=== PATIENT | female | born 1960 | race American Indian/Alaskan Native ===

== ENCOUNTER 2016-12-03 18:53 | Emergency (ER) | payer MEDICAID ==
[2016-12-03 18:56] VITALS: BMI 29.0
[2016-12-03 19:15] VITALS: RESP 18
[2016-12-03 19:34] VITALS: BP 138/82; PULSE 69; TEMP 98.2; O2SAT 99
[2016-12-03] MEDS ORDERED: Oxycodone/Acetaminophen 5/325 mg Tab PO STA (20:16)
--- NOTE | 2016-12-03 20:17 | ED PDOC ---
Arrival/HPI - General Chief Complaint: Back Pain Time Seen by Provider: 12/03/16 19:35 Historian: Patient - History of Present Illness Narrative History of Present Illness (Text): 12/03/16 19:35 A 56 year old female, whose past medical history includes lumbar radiculopathy and knee OA, presents to the emergency department complaining of left hip and back pain for the past 4 weeks. Patient is currently requesting Toradol for the pain and a prescription for Percocet. She denies any fever, chills, chest pain, shortness of breath or any other complaints at this time. PMD: Dr. Jonas Time/Duration: > week (4 weeks) Symptom Onset: Sudden Symptom Course: Unchanged Quality: Other Activities at Onset: Rest Context: Home Past Medical History - Provider Review Nursing Documentation Reviewed: Yes - Infectious Disease Hx of Infectious Diseases: None - Tetanus Immunization Tetanus Immunization: Unknown - Reproductive Menopause: Yes - Cardiac Hx Cardiac Disorders: No - Pulmonary Hx Respiratory Disorders: Yes Hx Asthma: Yes Hx Bronchitis: Yes - Neurological Hx Neurological Disorder: No - HEENT Hx HEENT Disorder: No - Renal Hx Renal Disorder: No - Endocrine/Metabolic Hx Endocrine Disorders: No - Hematological/Oncological Hx Blood Disorders: No - Integumentary Hx Dermatological Disorder: No - Musculoskeletal/Rheumatological Hx Arthritis: Yes Hx Back Pain: Yes Hx Degenerative Joint Disease: Yes Other/Comment: pinched nerve; chronic right leg pain, PVD - Gastrointestinal Hx Gastrointestinal Disorders: No - Genitourinary/Gynecological Hx Genitourinary Disorders: No - Psychiatric Hx Anxiety: Yes Hx Depression: Yes Hx Emotional Abuse: No Hx Physical Abuse: No Hx Substance Use: No - Surgical History Hx Orthopedic Surgery: Yes (rt foot) Other/Comment: L breast biopsy - Anesthesia Hx Anesthesia Reactions: No - Suicidal Assessment Feels Threatened In Home Enviroment: No Family/Social History - Physician Review Nursing Documentation Reviewed: Yes Family/Social History: Unknown Family HX Smoking Status: Current Some Days Smoker Hx Alcohol Use: Yes Hx Substance Use: No Hx Substance Use Treatment: No Allergies/Home Meds Allergies/Adverse Reactions: Allergies Sulfa (Sulfonamide Antibiotics) Allergy (Verified 12/03/16 19:15) ANAPHYLAXIS sulfur Allergy (Uncoded 11/07/15 16:42) ANAPHYLAXIS Home Medications: Home Meds Medication Instructions Recorded Confirmed Omeprazole [PrilOSEC] 40 mg PO DAILY 01/17/15 12/03/16 Methocarbamol [Robaxin] 750 mg PO TID 12/03/16 12/03/16 buPROPion XL [Wellbutrin] 150 mg PO DAILY 12/03/16 12/03/16 Review of Systems - Physician Review All systems were reviewed & negative as marked: Yes - Review of Systems Constitutional: absent: Fevers Respiratory: absent: SOB Cardiovascular: absent: Chest Pain Musculoskeletal: Back Pain, Other (right hip pain) Physical Exam Vital Signs Reviewed: Yes Vital Signs Temp Pulse Resp BP Pulse Ox 12/03/16 19:33 98.2 F 69 18 138/82 99 12/03/16 19:12 99 F 72 18 163/76 H 98 Temperature: Afebrile Blood Pressure: Hypertensive Pulse: Regular Respiratory Rate: Normal Appearance: Positive for: Well-Appearing, Non-Toxic, Comfortable Pain Distress: None Mental Status: Positive for: Alert and Oriented X 3 - Systems Exam Head: Present: Atraumatic, Normocephalic Pupils: Present: PERRL Extroacular Muscles: Present: EOMI Conjunctiva: Present: Normal Mouth: Present: Moist Mucous Membranes Neck: Present: Normal Range of Motion Respiratory/Chest: Present: Clear to Auscultation, Good Air Exchange. No: Respiratory Distress, Accessory Muscle Use Cardiovascular: Present: Regular Rate and Rhythm, Normal S1, S2. No: Murmurs Abdomen: Present: Normal Bowel Sounds. No: Tenderness, Distention, Peritoneal Signs Back: Present: Normal Inspection Upper Extremity: Present: Normal Inspection. No: Cyanosis, Edema Lower Extremity: Present: Normal Inspection. No: Edema Neurological: Present: GCS=15, CN II-XII Intact, Speech Normal Skin: Present: Warm, Dry, Normal Color. No: Rashes Psychiatric: Present: Alert, Oriented x 3, Normal Insight, Normal Concentration Medical Decision Making ED Course and Treatment: 12/03/16 19:35 Impression: A 56 year old female with chronic left hip and back pain. Differential Diagnosis include but are not limited to: chronic pain Plan: -- Toradol -- Reassess and disposition Prior Visits: Notes and results from previous visits were reviewed. The patient last presented to the emergency department on 11/07/15 for evaluation of right knee pain. Progress Notes: 12/03/16 20:16 On reevaluation the patient still complains of pain. Will give a Percocet. 12/03/16 20:22 On re-evaluation, the patient is in no acute distress.I have discussed the results and plan with the patient, who expresses understanding. Patient in agreement with plan to discharged home with prescription of Lidoderm. Patient is stable for discharge. I have explained to the patient, her pain is chronic and she will need to follow up with pain management for prescription for Percocet. Patient was instructed to follow up with pain management or return if symptoms worsen or new concerning symptoms arise. - Medication Orders Current Medication Orders: Discontinued Medications Ketorolac Tromethamine (Toradol) 60 mg IM ONCE ONE Stop: 12/03/16 20:01 Last Admin: 12/03/16 20:06 Dose: 60 mg Oxycodone/Acetaminophen (Percocet 5/325 Mg Tab) 1 tab PO STAT STA Stop: 12/03/16 20:17 Last Admin: 12/03/16 20:23 Dose: 1 tab - Scribe Statement The provider has reviewed the documentation as recorded by the Veena Aviles Provider Scribe Attestation: All medical record entries made by the Scribe were at my direction and personally dictated by me. I have reviewed the chart and agree that the record accurately reflects my personal performance of the history, physical exam, medical decision making, and the department course for this patient. I have also personally directed, reviewed, and agree with the discharge instructions and disposition. Disposition/Present on Arrival - Present on Arrival Any Indicators Present on Arrival: No History of DVT/PE: No History of Uncontrolled Diabetes: No Urinary Catheter: No History of Decub. Ulcer: No History Surgical Site Infection Following: None - Disposition Have Diagnosis and Disposition been Completed?: Yes Diagnosis: Chronic pain Disposition: HOME/ ROUTINE Disposition Time: 20:22 Condition: GOOD Discharge Instructions (ExitCare): Chronic Pain (ED) Prescriptions: Lidocaine 5% [Lidoderm] 1 appl TP DAILY #4 Referrals: Malvin Jonas MD [Primary Care Provider] - Follow up with primary
== END 2016-12-03 20:26 | disposition home or self-care (01) ==
LOC: ED 18:53
DX: G89.29 Other chronic pain (principal); M54.16 Radiculopathy, lumbar region; M17.9 Osteoarthritis of knee, unspecified
CPT/HCPCS: 96372; 99283; J1885

== ENCOUNTER 2017-02-06 22:18 | Emergency (ER) | payer MEDICAID ==
--- NOTE | 2017-02-06 23:16 | ED PDOC ---
Arrival/HPI - General Time Seen by Provider: 02/06/17 22:51 Historian: Patient - History of Present Illness Narrative History of Present Illness (Text): 02/06/17 23:18 56-year-old female presents to the ER complaining of several day history of right sided facial pain related to her sinuses. Patient states that she has had sinus infection in the past and her symptoms feel similar to her prior episodes. Reports of nasal congestion as well. Denies any fever, chills, headache, cough, sore throat, rash. Patient has no other complaints. States that she took Advil PM last night with improvement of pain. Past Medical History - Provider Review Nursing Documentation Reviewed: Yes - Infectious Disease Hx of Infectious Diseases: None - Tetanus Immunization Tetanus Immunization: Unknown - Cardiac Hx Cardiac Disorders: No - Pulmonary Hx Respiratory Disorders: Yes Hx Asthma: Yes Hx Bronchitis: Yes - Neurological Hx Neurological Disorder: No - HEENT Hx HEENT Disorder: No - Renal Hx Renal Disorder: No - Endocrine/Metabolic Hx Endocrine Disorders: No - Hematological/Oncological Hx Blood Disorders: No - Integumentary Hx Dermatological Disorder: No - Musculoskeletal/Rheumatological Hx Arthritis: Yes Hx Back Pain: Yes Hx Degenerative Joint Disease: Yes Other/Comment: pinched nerve; chronic right leg pain, PVD - Gastrointestinal Hx Gastrointestinal Disorders: No - Genitourinary/Gynecological Hx Genitourinary Disorders: No - Psychiatric Hx Anxiety: Yes Hx Depression: Yes Hx Emotional Abuse: No Hx Physical Abuse: No Hx Substance Use: No - Surgical History Hx Orthopedic Surgery: Yes (rt foot) Other/Comment: L breast biopsy - Anesthesia Hx Anesthesia Reactions: No - Suicidal Assessment Feels Threatened In Home Enviroment: No Family/Social History - Physician Review Nursing Documentation Reviewed: Yes Family/Social History: No Known Family HX Smoking Status: Current Some Days Smoker Hx Alcohol Use: Yes Hx Substance Use: No Hx Substance Use Treatment: No Allergies/Home Meds Allergies/Adverse Reactions: Allergies Sulfa (Sulfonamide Antibiotics) Allergy (Verified 12/03/16 19:15) ANAPHYLAXIS sulfur Allergy (Uncoded 11/07/15 16:42) ANAPHYLAXIS Home Medications: Home Meds Medication Instructions Recorded Confirmed Omeprazole [PrilOSEC] 40 mg PO DAILY 01/17/15 12/03/16 Methocarbamol [Robaxin] 750 mg PO TID 12/03/16 12/03/16 buPROPion XL [Wellbutrin] 150 mg PO DAILY 12/03/16 12/03/16 Review of Systems - Review of Systems Constitutional: Normal. absent: Fatigue, Weight Change, Fevers, Night Sweats ENT: Normal, Sinus Congestion. absent: Hearing Changes, Rhinorrhea, Epistaxis Respiratory: Normal. absent: SOB, Cough, Sputum Cardiovascular: Normal. absent: Chest Pain, Palpitations, Edema Musculoskeletal: Normal. absent: Arthralgias, Back Pain, Neck Pain Skin: Normal. absent: Rash, Pruritis, Skin Lesions Physical Exam Vital Signs Reviewed: Yes Vital Signs Temp Pulse Resp BP Pulse Ox 02/06/17 22:20 98.3 F 73 16 164/84 H 98 Appearance: Positive for: Well-Appearing, Non-Toxic, Comfortable Pain Distress: Mild Mental Status: Positive for: Alert and Oriented X 3 - Systems Exam Head: Present: Atraumatic, Normocephalic Pupils: Present: PERRL Extroacular Muscles: Present: EOMI Conjunctiva: Present: Normal Ears: Present: Normal, NORMAL TM, Normal Canal. No: Erythema, TM Bulging Mouth: Present: Moist Mucous Membranes Pharnyx: Present: Normal. No: ERYTHEMA, EXUDATE Nose (Internal): Present: Normal Inspection, Other (+tenderness to the R maxillary sinus). No: Rhinorrhea, Purulent Mucous Neck: Present: Normal Range of Motion. No: MIDLINE TENDERNESS Respiratory/Chest: Present: Clear to Auscultation, Good Air Exchange. No: Respiratory Distress, Accessory Muscle Use, Wheezes, Rales, Rhonchi Cardiovascular: Present: Regular Rate and Rhythm, Normal S1, S2. No: Murmurs Upper Extremity: Present: Normal Inspection, Normal ROM, NORMAL PULSES, Neurovascularly Intact, Capillary Refill < 2s. No: Edema Lower Extremity: Present: Normal Inspection. No: Edema, Tenderness Neurological: Present: GCS=15, CN II-XII Intact Skin: Present: Warm, Dry, Normal Color. No: Rashes Psychiatric: Present: Alert, Oriented x 3 Medical Decision Making ED Course and Treatment: 02/06/17 23:14 56-year-old female presents to the ER complaining of several day history of right sided facial pain related to her sinuses. Based on history and exam, to consider sinusitis, rhinitis, URI. Patient medicated with Augmentin by mouth, Motrin by mouth, and Benadryl by mouth. Prescriptions for Augmentin, Motrin, and Flonase was prescribed to the patient. Advised to finish full course of antibiotics and follow-up with PMD or ENT referral in 2 days for reevaluation. Patient states she fully agrees with and understands discharge instructions. States that she agrees with the plan and disposition. Verbalized and repeated discharge instructions and plan. I have given the patient opportunity to ask any additional questions. Follow up with primary care physician and ENT referral in 1-2 days without fail. Advised to take medication as prescribed. Return to the emergency room at any time for any new or worsening symptoms. - PA / ELEVATOR BUILDER / Resident Statement MD/DO has reviewed & agrees with the documentation as recorded. Disposition/Present on Arrival - Present on Arrival Any Indicators Present on Arrival: No History of DVT/PE: No History of Uncontrolled Diabetes: No Urinary Catheter: No History of Decub. Ulcer: No History Surgical Site Infection Following: None - Disposition Have Diagnosis and Disposition been Completed?: Yes Diagnosis: Sinusitis Disposition: HOME/ ROUTINE Disposition Time: 23:13 Patient Plan: Discharge Patient Problems: Current Active Problems Problem Status Onset Sinusitis Acute Condition: GOOD Discharge Instructions (ExitCare): Sinusitis (ED) Print Language: GREENLANDIC Additional Instructions: Thank you for letting us take care of you today. You were treated for sinusitis. The emergency medical care you received today was directed at your acute symptoms. If you were prescribed any medication, please fill it and take as directed. It may take several days for your symptoms to resolve. Return to the Emergency Department if your symptoms worsen, do not improve, or if you have any other problems. Please contact your doctor in 2 days for re-evaluation and follow up / or call one of the physicians/clinics you have been referred to that are listed on the Patient Visit Information form that is included in your discharge packet. Bring any paperwork you were given at discharge with you along with any medications you are taking to your follow up visit. Our treatment cannot replace ongoing medical care by a primary care provider (PCP) outside of the emergency department. Thank you for allowing the [facility] [employer] team to be part of your care today. Prescriptions: Amoxicillin/Potassium Clav [Augmentin 500-125 Tablet] 1 each PO TID #30 tablet Fluticasone Propionate [Flonase] 2 spr IN DAILY #1 bottle Ibuprofen [Motrin Tab] 800 mg PO TID #20 tab Referrals: Arnaldo Silver DO [[facility]] - Follow up with primary Forms: WORK NOTE
[2017-02-06 23:27] VITALS: BP 164/84; PULSE 73; RESP 16; TEMP 98.3; O2SAT 98; BMI 30.7
[2017-02-06] MEDS ORDERED: Amoxicillin-Clav 500-125 mg Tab PO STA (23:55)
== END 2017-02-07 00:06 | disposition home or self-care (01) ==
LOC: ED 22:18
DX: J32.9 Chronic sinusitis, unspecified (principal); Z72.0 Tobacco use

== ENCOUNTER 2017-08-01 16:27 | Emergency (ER) | payer MEDICAID ==
[2017-08-01 16:41] VITALS: BMI 29.9
[2017-08-01 16:45] VITALS: BP 174/98; PULSE 68; RESP 18; TEMP 98.2; O2SAT 98
--- NOTE | 2017-08-01 17:57 | ED PDOC ---
Arrival/HPI - General Chief Complaint: Back Pain Time Seen by Provider: 08/01/17 16:31 Historian: Patient - History of Present Illness Narrative History of Present Illness (Text): 08/01/17 17:56 57yo female with PMHx of chronic back pain and OA biba for complaint of severe lower back pain that radiates to her leg. she decribes pain as "spasm" for the past few days now. Notes taht she takes Neuroltin, Naprosyn and abclofen at home without relieve. states she is unable to ambulate secondary to the pain. She notes history of similar symptom on her Past Medical History - Provider Review Nursing Documentation Reviewed: Yes - Infectious Disease Hx of Infectious Diseases: None - Tetanus Immunization Tetanus Immunization: Unknown - Cardiac Hx Cardiac Disorders: No - Pulmonary Hx Respiratory Disorders: Yes Hx Asthma: Yes Hx Bronchitis: Yes - Neurological Hx Neurological Disorder: No - HEENT Hx HEENT Disorder: No - Renal Hx Renal Disorder: No - Endocrine/Metabolic Hx Endocrine Disorders: No - Hematological/Oncological Hx Blood Disorders: No - Integumentary Hx Dermatological Disorder: No - Musculoskeletal/Rheumatological Hx Arthritis: Yes Hx Back Pain: Yes Hx Degenerative Joint Disease: Yes Other/Comment: pinched nerve; chronic right leg pain, PVD - Gastrointestinal Hx Gastrointestinal Disorders: No - Genitourinary/Gynecological Hx Genitourinary Disorders: No - Psychiatric Hx Anxiety: Yes Hx Depression: Yes Hx Emotional Abuse: No Hx Physical Abuse: No Hx Substance Use: No - Surgical History Hx Orthopedic Surgery: Yes (rt foot) Other/Comment: L breast biopsy - Anesthesia Hx Anesthesia: Yes Hx Anesthesia Reactions: No - Suicidal Assessment Feels Threatened In Home Enviroment: No Family/Social History - Physician Review Nursing Documentation Reviewed: Yes Family/Social History: Unknown Family HX Smoking Status: Current Some Days Smoker Hx Alcohol Use: Yes Frequency of alcohol use: Socially Hx Substance Use: No Hx Substance Use Treatment: No Allergies/Home Meds Allergies/Adverse Reactions: Allergies Sulfa (Sulfonamide Antibiotics) Allergy (Verified 02/07/17 00:06) ANAPHYLAXIS sulfur Allergy (Uncoded 02/07/17 00:06) ANAPHYLAXIS Home Medications: Home Meds Medication Instructions Recorded Confirmed Omeprazole [PrilOSEC] 40 mg PO DAILY 01/17/15 08/01/17 Methocarbamol [Robaxin] 750 mg PO TID 12/03/16 08/01/17 buPROPion XL [Wellbutrin] 150 mg PO DAILY 12/03/16 08/01/17 Review of Systems - Physician Review All systems were reviewed & negative as marked: Yes - Review of Systems Constitutional: Normal Eyes: Normal ENT: Normal Respiratory: Normal Cardiovascular: Normal Gastrointestinal: Normal Genitourinary Female: Normal Musculoskeletal: Back Pain Skin: Normal Neurological: Normal Endocrine: Normal Hemo/Lymphatic: Normal Psychiatric: Normal Physical Exam Vital Signs Reviewed: Yes Vital Signs Temp Pulse Resp BP Pulse Ox 08/01/17 16:27 98.2 F 68 18 174/98 H 98 Temperature: Afebrile Blood Pressure: Normal Pulse: Regular Respiratory Rate: Normal Appearance: Positive for: Well-Appearing, Non-Toxic, Comfortable Pain Distress: None Mental Status: Positive for: Alert and Oriented X 3 - Systems Exam Head: Present: Atraumatic, Normocephalic Pupils: Present: PERRL Extroacular Muscles: Present: EOMI Conjunctiva: Present: Normal Mouth: Present: Moist Mucous Membranes Neck: Present: Normal Range of Motion Respiratory/Chest: Present: Clear to Auscultation, Good Air Exchange. No: Respiratory Distress, Accessory Muscle Use Cardiovascular: Present: Regular Rate and Rhythm, Normal S1, S2. No: Murmurs Abdomen: Present: Normal Bowel Sounds. No: Tenderness, Distention, Peritoneal Signs Back: Present: Midline Tenderness, Paraspinal Tenderness, Pain with Leg Raise (B /L) Upper Extremity: Present: Normal Inspection. No: Cyanosis, Edema Lower Extremity: Present: Normal Inspection. No: Edema Neurological: Present: GCS=15, CN II-XII Intact, Speech Normal Skin: Present: Warm, Dry, Normal Color. No: Rashes Psychiatric: Present: Alert, Oriented x 3, Normal Insight, Normal Concentration Medical Decision Making ED Course and Treatment: 08/01/17 18:53 PT in ED for exacerbation of chronic lower back pain that radiates to her lower leg. Pt's pain was controlled in ED with medication. On re evaluation she notes that her pain improved, but still have some spasm. she was offered admission, but she declined admission, notes that she can ambulate and wants prescription for pain medication. She was neurologically intact and ambulatory with steady gait. Rx of Tramadol and baclofen was given in ED. She was strongly advised to f/u with her PMD/pain management. - Medication Orders Current Medication Orders: Discontinued Medications Diazepam (Valium) 5 mg PO ONCE ONE PRN Reason: Protocol Stop: 08/01/17 16:58 Last Admin: 08/01/17 17:22 Dose: 5 mg Hydrocortisone Sodium Succinate (Solu-Cortef) 100 mg IVP STAT STA Stop: 08/01/17 16:57 Last Admin: 08/01/17 17:39 Dose: 100 mg IVP Administration Document 08/01/17 17:39 SS (Rec: 08/01/17 17:39 SS [place] [id number]) Charges for Administration # of IVP Administrations 1 Ketorolac Tromethamine (Toradol) 30 mg IVP STAT STA Stop: 08/01/17 16:57 Last Admin: 08/01/17 17:21 Dose: 30 mg MAR Pain Assessment Document 08/01/17 17:21 SS (Rec: 08/01/17 17:22 SS [place] [id number]) Pain Reassessment Is this a pain reassessment? No Sleep Is patient sleeping during reassessment? No Presence of Pain Presence of Pain Yes Pain Scale Used Pain Scale Used Numeric Location Pain Location Body Site Lumbar Description Description Intermittent Intensity of Pain at present 10 Pain Behavior Moaning Crying IVP Administration Document 08/01/17 17:21 SS (Rec: 08/01/17 17:22 SS [place] [id number]) Charges for Administration # of IVP Administrations 1 Oxycodone/Acetaminophen (Percocet 5/325 Mg Tab) 1 tab PO STAT STA Stop: 08/01/17 18:01 Last Admin: 08/01/17 18:09 Dose: 1 tab MAR Pain Assessment Document 08/01/17 18:09 SS (Rec: 08/01/17 18:10 SS [place] [id number]) Pain Reassessment Is this a pain reassessment? Yes Sleep Is patient sleeping during reassessment? No Presence of Pain Presence of Pain Yes Location Upper or Lower Lower Pain Location Body Site Back Description Pain Behavior Moaning Crying Disposition/Present on Arrival - Present on Arrival Any Indicators Present on Arrival: No History of DVT/PE: No History of Uncontrolled Diabetes: No Urinary Catheter: No History of Decub. Ulcer: No History Surgical Site Infection Following: None - Disposition Have Diagnosis and Disposition been Completed?: Yes Diagnosis: Radicular low back pain, Chronic back pain Disposition: HOME/ ROUTINE Disposition Time: 19:00 Patient Plan: Discharge Condition: STABLE Discharge Instructions (ExitCare): Chronic Back Pain (ED) Additional Instructions: Follow up with your doctor/Pain management Return to ED for any new or worsening symptoms Prescriptions: Amoxicillin 500 mg PO TID #21 tablet Baclofen [Lioresal] 10 mg PO DAILY #7 tab traMADol [Ultram] 50 mg PO TID #12 tab Referrals: Anderson Vásquez MD [Staff Provider] - Follow up with primary Forms: [employer] (Nepalese)
[2017-08-01] MEDS ORDERED: Oxycodone/Acetaminophen 5/325 mg Tab PO STA (18:00)
== END 2017-08-01 19:40 | disposition home or self-care (01) ==
LOC: ED 16:27
DX: G89.29 Other chronic pain (principal); M54.5 Low back pain
CPT/HCPCS: 96374; 96375; 99283; J1720; J1885

== ENCOUNTER 2017-08-31 10:52 | Emergency (ER) | payer MEDICAID ==
[2017-08-31 10:53] VITALS: BMI 29.9
[2017-08-31] MEDS ORDERED: Oxycodone/Acetaminophen 5/325 mg Tab PO STA (11:53)
--- NOTE | 2017-08-31 11:59 | ED PDOC ---
Arrival/HPI - General Chief Complaint: Lower Extremity Problem/Injury Time Seen by Provider: 08/31/17 11:06 Historian: Patient - History of Present Illness Narrative History of Present Illness (Text): you were treated in the ED today for having lumbar spinal disease and having burning pain going down the left leg to the foot but otherwise without any trauma/fall/injury/neck or specific back pain/nausea/vomiting/headache/dizziness /difficulty breathing/chest pain/abdomen pain/numbness/tingling/loss of limb function/pain with urination. 08/31/17 11:55 Time/Duration: Other (2 days) Symptom Onset: Gradual Symptom Course: Unchanged, Intermittent Quality: Burning Severity Level: 5 Activities at Onset: Rest Context: Sitting, Standing, Walking Past Medical History - Provider Review Nursing Documentation Reviewed: Yes - Travel History Have you recently traveled outside [place] w/in the past 3 mons?: No - Infectious Disease Hx of Infectious Diseases: None - Tetanus Immunization Tetanus Immunization: Unknown - Reproductive Menopause: Yes - Cardiac Hx Cardiac Disorders: No - Pulmonary Hx Respiratory Disorders: Yes Hx Asthma: Yes Hx Bronchitis: Yes - Neurological Hx Neurological Disorder: No - HEENT Hx HEENT Disorder: No - Renal Hx Renal Disorder: No - Endocrine/Metabolic Hx Endocrine Disorders: No - Hematological/Oncological Hx Blood Disorders: No - Integumentary Hx Dermatological Disorder: No - Musculoskeletal/Rheumatological Hx Arthritis: Yes Hx Back Pain: Yes Hx Degenerative Joint Disease: Yes Other/Comment: pinched nerve; chronic right leg pain, PVD - Gastrointestinal Hx Gastrointestinal Disorders: No - Genitourinary/Gynecological Hx Genitourinary Disorders: No - Psychiatric Hx Anxiety: Yes Hx Depression: Yes Hx Emotional Abuse: No Hx Physical Abuse: No Hx Substance Use: No - Surgical History Hx Orthopedic Surgery: Yes (rt foot) Other/Comment: L breast biopsy - Anesthesia Hx Anesthesia: Yes Hx Anesthesia Reactions: No - Suicidal Assessment Feels Threatened In Home Enviroment: No Family/Social History - Physician Review Nursing Documentation Reviewed: Yes Family/Social History: No Known Family HX Smoking Status: Current Some Days Smoker Hx Alcohol Use: Yes Hx Substance Use: No Hx Substance Use Treatment: No Allergies/Home Meds Allergies/Adverse Reactions: Allergies Sulfa (Sulfonamide Antibiotics) Allergy (Verified 08/31/17 11:13) ANAPHYLAXIS sulfur Allergy (Uncoded 02/07/17 00:06) ANAPHYLAXIS Home Medications: Home Meds Medication Instructions Recorded Confirmed Omeprazole [PrilOSEC] 40 mg PO DAILY 01/17/15 08/31/17 Methocarbamol [Robaxin] 750 mg PO TID 12/03/16 08/31/17 buPROPion XL [Wellbutrin] 150 mg PO DAILY 12/03/16 08/31/17 Cyclobenzaprine [Cyclobenzaprine 10 mg PO PRN 08/31/17 08/31/17 HCl] Review of Systems - Review of Systems Constitutional: Normal Eyes: Normal ENT: Normal Respiratory: Normal Cardiovascular: Normal Gastrointestinal: Normal Genitourinary Female: Normal Musculoskeletal: Other (back left leg burning pain to foot) Skin: Normal Neurological: Normal Endocrine: Normal Hemo/Lymphatic: Normal Psychiatric: Normal Physical Exam Vital Signs Reviewed: Yes Vital Signs Temp Pulse Resp BP Pulse Ox 08/31/17 11:09 98.8 F 87 16 132/75 98 Temperature: Afebrile Blood Pressure: Hypertensive Pulse: Regular Respiratory Rate: Normal Appearance: Positive for: Well-Appearing, Non-Toxic, Comfortable Pain Distress: None Mental Status: Positive for: Alert and Oriented X 3 - Systems Exam Head: Present: Atraumatic, Normocephalic Pupils: Present: PERRL Extroacular Muscles: Present: EOMI Conjunctiva: Present: Normal Ears: Present: Normal Mouth: Present: Moist Mucous Membranes Pharnyx: Present: Normal Nose (External): Present: Atraumatic Nose (Internal): Present: Normal Inspection Neck: Present: Normal Range of Motion Respiratory/Chest: Present: Clear to Auscultation, Good Air Exchange Cardiovascular: Present: Regular Rate and Rhythm Abdomen: Present: Other Back: Present: Normal Inspection, Pain with Leg Raise, Other (no c-t-l spinal or paraspinal tenderness. positive left leg raise.) Upper Extremity: Present: Normal Inspection Lower Extremity: Present: Normal Inspection, NORMAL PULSES, Normal ROM, Neurovascularly Intact, Capillary Refill < 2 s. No: Edema, CALF TENDERNESS, Cyanosis, Joaquin's Sign, Tenderness, Swelling, Erythema, Deformity, Temperature Abnormalties, Other Neurological: Present: GCS=15, CN II-XII Intact, Speech Normal, Motor Func Grossly Intact Skin: Present: Warm, Normal Color Psychiatric: Present: Alert, Oriented x 3, Normal Insight, Normal Concentration Medical Decision Making ED Course and Treatment: you were treated in the ED today for having lumbar spinal disease and having burning pain going down the left leg to the foot but otherwise without any trauma/fall/injury/neck or specific back pain/nausea/vomiting/headache/dizziness /difficulty breathing/chest pain/abdomen pain/numbness/tingling/loss of limb function/pain with urination. You were otherwise breathing easily, smiling and talking easily, good strength/sensation, walking, clear lungs, no abdomen tenderness, left lower leg pink/warm/sensation/pulses and no spinal tenderness, positive left leg raise, no calf/leg swelling, no fever temp 98.8, stable heart rate 87, stable breathing rate 16, excellent oxygen level 98% room air, elevated blood pressure 132/75 which we recommend repeat in 2-3 days primary care office to determine further treatment, we had a long discussion regarding doing spinal imaging at this time but you wanted pain medication control which motrin and percocet was done in the ED with improvement, cautioned for complications, counselled to followup with primary care for review of symptoms and thus discharged home with a ride. 1. Recommend tylenol as directed for mild pain. 2. Recommend renewal of gabapentin 300mg as needed three times a day for nerve pain relief as you ran out. recommend percocet as directed for breakthrough pain and dont' work/drive/drink alcohol when using. 3. Recommend follow-up primary care 2-3 days to review symptoms, referral to spinal clinic and spinal MRI evaluation. 4. If any worsening pain, fever, chills, nausea, vomiting, difficulty breathing, numbness, loss of limb function, pain with urination or any medical condition then return to the ED. 08/31/17 11:59 08/31/17 11:59 08/31/17 12:04 Disposition/Present on Arrival - Present on Arrival Any Indicators Present on Arrival: No History of DVT/PE: No History of Uncontrolled Diabetes: No Urinary Catheter: No History of Decub. Ulcer: No History Surgical Site Infection Following: None - Disposition Have Diagnosis and Disposition been Completed?: Yes Diagnosis: Sciatica, Medication refill Disposition: HOME/ ROUTINE Disposition Time: 12:05 Patient Plan: Discharge Condition: IMPROVED Additional Instructions: you were treated in the ED today for having lumbar spinal disease and having burning pain going down the left leg to the foot but otherwise without any trauma/fall/injury/neck or specific back pain/nausea/vomiting/headache/dizziness /difficulty breathing/chest pain/abdomen pain/numbness/tingling/loss of limb function/pain with urination. You were otherwise breathing easily, smiling and talking easily, good strength/sensation, walking, clear lungs, no abdomen tenderness, left lower leg pink/warm/sensation/pulses and no spinal tenderness, positive left leg raise, no calf/leg swelling, no fever temp 98.8, stable heart rate 87, stable breathing rate 16, excellent oxygen level 98% room air, elevated blood pressure 132/75 which we recommend repeat in 2-3 days primary care office to determine further treatment, we had a long discussion regarding doing spinal imaging at this time but you wanted pain medication control which motrin and percocet was done in the ED with improvement, cautioned for complications, counselled to followup with primary care for review of symptoms and thus discharged home with a ride. 1. Recommend tylenol as directed for mild pain. 2. Recommend renewal of gabapentin 300mg as needed three times a day for nerve pain relief as you ran out. recommend percocet as directed for breakthrough pain and dont' work/drive/drink alcohol when using. 3. Recommend follow-up primary care 2-3 days to review symptoms, referral to spinal clinic and spinal MRI evaluation. 4. If any worsening pain, fever, chills, nausea, vomiting, difficulty breathing, numbness, loss of limb function, pain with urination or any medical condition then return to the ED. Prescriptions: Gabapentin 300 mg PO Q8 PRN 7 Days #21 capsule PRN Reason: nerve pain oxyCODONE/Acetaminophen [Percocet 5/325 mg Tab] 1 ea PO Q6 PRN #8 tab PRN Reason: breakthrough pain
[2017-08-31 12:22] VITALS: BP 121/71; PULSE 85; RESP 20; TEMP 98; O2SAT 99
== END 2017-08-31 12:24 | disposition home or self-care (01) ==
LOC: ED 10:52
DX: Z76.0 Encounter for issue of repeat prescription (principal); M54.30 Sciatica, unspecified side

== ENCOUNTER 2017-09-26 19:52 | Emergency (ER) | payer MEDICAID ==
[2017-09-26 19:53] VITALS: BMI 29.9
[2017-09-26 20:54] VITALS: BP 145/86; PULSE 86; RESP 18; TEMP 98.2; O2SAT 99
--- NOTE | 2017-09-26 21:43 | ED PDOC ---
Arrival/HPI - General Chief Complaint: Lower Extremity Problem/Injury - History of Present Illness Narrative History of Present Illness (Text): 09/26/17 21:39 Pt is a 57 yo F with PMH of asthma, lumbar radiculopathy, and peripheral neuropathy presents to Emergency department due to increased left foot neuropathic pain. Pt was seen at [facility] Emergency department about one month ago for similar complaint. Pt statest that she currently takes baclofen, tramadol, and gabapentin for her neuropathic pain. However, she is out of all medications and had not followed up with her PMD. Pt also states that she had been taking double to triple the maximum dosage of gabapentin. Pt denied any LLE weakness, saddle paresthesia, bowel or bladder incontinence, back pain, chest pain, shortness of breath, nausea, vomiting, diarrhea, abdominal pain, fever, chills. PMD: [place] Past Medical History - Infectious Disease Hx of Infectious Diseases: None - Tetanus Immunization Tetanus Immunization: Unknown - Cardiac Hx Cardiac Disorders: No - Pulmonary Hx Respiratory Disorders: Yes Hx Asthma: Yes Hx Bronchitis: Yes - Neurological Hx Neurological Disorder: No - HEENT Hx HEENT Disorder: No - Renal Hx Renal Disorder: No - Endocrine/Metabolic Hx Endocrine Disorders: No - Hematological/Oncological Hx Blood Disorders: No - Integumentary Hx Dermatological Disorder: No - Musculoskeletal/Rheumatological Hx Arthritis: Yes Hx Back Pain: Yes Hx Degenerative Joint Disease: Yes Other/Comment: pinched nerve; chronic right leg pain, PVD - Gastrointestinal Hx Gastrointestinal Disorders: No - Genitourinary/Gynecological Hx Genitourinary Disorders: No - Psychiatric Hx Anxiety: Yes Hx Depression: Yes Hx Emotional Abuse: No Hx Physical Abuse: No Hx Substance Use: No - Surgical History Hx Orthopedic Surgery: Yes (rt foot) Other/Comment: L breast biopsy - Anesthesia Hx Anesthesia: Yes Hx Anesthesia Reactions: No - Suicidal Assessment Feels Threatened In Home Enviroment: No Family/Social History Family/Social History: No Known Family HX Smoking Status: Current Some Days Smoker Hx Alcohol Use: Yes Hx Substance Use: No Hx Substance Use Treatment: No Allergies/Home Meds Allergies/Adverse Reactions: Allergies Sulfa (Sulfonamide Antibiotics) Allergy (Verified 08/31/17 11:13) ANAPHYLAXIS sulfur Allergy (Uncoded 02/07/17 00:06) ANAPHYLAXIS Home Medications: Home Meds Medication Instructions Recorded Confirmed Omeprazole [PrilOSEC] 40 mg PO DAILY 01/17/15 09/26/17 Methocarbamol [Robaxin] 750 mg PO TID 12/03/16 09/26/17 buPROPion XL [Wellbutrin] 150 mg PO DAILY 12/03/16 09/26/17 Cyclobenzaprine [Cyclobenzaprine 10 mg PO PRN 08/31/17 09/26/17 HCl] Review of Systems - Review of Systems Constitutional: Normal Eyes: Normal ENT: Normal Respiratory: Normal Cardiovascular: Normal Gastrointestinal: Normal Genitourinary Female: Normal Musculoskeletal: Other (Left foot pain and numbness) Skin: Normal Neurological: Normal Endocrine: Normal Hemo/Lymphatic: Normal Psychiatric: Normal Physical Exam Vital Signs Temp Pulse Resp BP Pulse Ox 09/26/17 20:54 98.2 F 86 18 145/86 99 Temperature: Afebrile Blood Pressure: Normal Pulse: Regular Respiratory Rate: Normal Appearance: Positive for: Well-Appearing Mental Status: Positive for: Alert and Oriented X 3 - Systems Exam Head: Present: Atraumatic, Normocephalic Extroacular Muscles: Present: EOMI Mouth: Present: Moist Mucous Membranes Neck: Present: Normal Range of Motion Respiratory/Chest: Present: Clear to Auscultation. No: Accessory Muscle Use, Wheezes, Rales, Rhonchi Cardiovascular: Present: Regular Rate and Rhythm, Normal S1, S2. No: Murmurs, Rub, Gallop Abdomen: No: Tenderness, Distention, Peritoneal Signs, Rebound Back: Present: Normal Inspection Upper Extremity: Present: Normal Inspection Lower Extremity: Present: Tenderness (left foot), Swelling Neurological: Present: GCS=15 Skin: Present: Warm, Dry, Normal Color Medical Decision Making ED Course and Treatment: 09/26/17 21:44 Assessment: 57 yo F presents to Emergency department with left foot neuropathic pain. Plan: - Morphine - Gabapentin Disposition/Present on Arrival - Present on Arrival Any Indicators Present on Arrival: No History of DVT/PE: No History of Uncontrolled Diabetes: No Urinary Catheter: No History of Decub. Ulcer: No History Surgical Site Infection Following: None - Disposition Have Diagnosis and Disposition been Completed?: Yes Diagnosis: Neuropathy Disposition: HOME/ ROUTINE Disposition Time: 21:46 Patient Plan: Discharge Condition: STABLE Discharge Instructions (ExitCare): Peripheral Neuropathy Additional Instructions: 1. Do not take more medication than is prescribed 2. Follow up with PMD for medication refills 3. Follow up with neurologist as prescribed 4. Return to Emergency department if symptoms worsen. Including but not limited to: Bowel or bladder incontinence Increasing lower extremity weakness and numbness Gait instability Excessive drowsiness/sleepiness Excessive dizziness Prescriptions: Gabapentin 300 mg PO TID 3 Days capsule traMADol [Ultram] 50 mg PO TID 3 Days tab
[2017-09-26] MEDS ORDERED: Morphine 2 mg/ml ISec IVP STA (21:45)
[2017-09-26] MEDS ORDERED: Morphine 4 mg/ml ISec IM STA (22:11)
== END 2017-09-26 22:38 | disposition home or self-care (01) ==
LOC: ED 19:52
DX: G62.9 Polyneuropathy, unspecified (principal)
CPT/HCPCS: 96372; 99283; J2270

== ENCOUNTER 2018-01-09 19:14 | Emergency (ER) | payer MEDICAID ==
[2018-01-09 19:15] VITALS: BMI 29.9
[2018-01-09 19:25] VITALS: PULSE 65; TEMP 98.6; O2SAT 100
[2018-01-09] MEDS ORDERED: Lidocaine 5% Patch TD STA (19:41)
--- NOTE | 2018-01-09 19:48 | ED PDOC ---
Arrival/HPI - General Chief Complaint: Pain, Chronic Time Seen by Provider: 01/09/18 19:15 Historian: Patient - History of Present Illness Narrative History of Present Illness (Text): 01/09/18 19:38 57 year old female, with past medical history of asthma, lumbar radiculopathy, and peripheral neuropathy, who has been seen multiple times in the Emergency department for chronic back pain, presents to the Emergency department for chronic back pain exacerbation today. Upon assessment, patient requests morphine and narcotics for pain, sepcifically requesting morphine and rx. Review of medications on [place] Rx site shows multiple current prescriptions of percocet and tramadol t. As per [facility] policy, patient iwill be treated with non narcotic Patient denies any saddle anesthesia, fever, chills, nausea, vomiting, diarrhea, abdominal pain, chest pain, shortness of breath, urinary output changes, dysuria or any other complaints. Patient presented to the Emergency department with no difficulty ambulating and is in no acute distress. 01/10/18 01:20 Time/Duration: 24 hours Symptom Onset: Gradual Symptom Course: Unchanged Quality: Aching Activities at Onset: Light Context: Home Past Medical History - Provider Review Nursing Documentation Reviewed: Yes - Infectious Disease Hx of Infectious Diseases: None - Tetanus Immunization Tetanus Immunization: Unknown - Reproductive Menopause: Yes - Cardiac Hx Cardiac Disorders: No - Pulmonary Hx Respiratory Disorders: Yes Hx Asthma: Yes Hx Bronchitis: Yes - Neurological Hx Neurological Disorder: Yes Other/Comment: NEUROPATHY - HEENT Hx HEENT Disorder: No - Renal Hx Renal Disorder: No - Endocrine/Metabolic Hx Endocrine Disorders: No - Hematological/Oncological Hx Blood Disorders: No - Integumentary Hx Dermatological Disorder: No - Musculoskeletal/Rheumatological Hx Musculoskeletal Disorders: Yes Hx Arthritis: Yes Hx Back Pain: Yes Hx Degenerative Joint Disease: Yes Other/Comment: PVD - Gastrointestinal Hx Gastrointestinal Disorders: No - Genitourinary/Gynecological Hx Genitourinary Disorders: No - Psychiatric Hx Anxiety: Yes Hx Depression: Yes Hx Emotional Abuse: No Hx Physical Abuse: No Hx Substance Use: No - Surgical History Hx Orthopedic Surgery: Yes (rt foot) Other/Comment: L breast biopsy - Anesthesia Hx Anesthesia: Yes Hx Anesthesia Reactions: No - Suicidal Assessment Feels Threatened In Home Enviroment: No Family/Social History - Physician Review Nursing Documentation Reviewed: Yes Family/Social History: No Known Family HX Smoking Status: Current Some Days Smoker Hx Alcohol Use: Yes Hx Substance Use: No Hx Substance Use Treatment: No Allergies/Home Meds Allergies/Adverse Reactions: Allergies Sulfa (Sulfonamide Antibiotics) Allergy (Verified 01/09/18 19:17) ANAPHYLAXIS sulfur Allergy (Uncoded 01/09/18 19:17) ANAPHYLAXIS Review of Systems - Physician Review All systems were reviewed & negative as marked: Yes - Review of Systems Constitutional: Normal. absent: Fevers Eyes: Normal ENT: Normal Respiratory: Normal. absent: SOB Cardiovascular: Normal. absent: Chest Pain Gastrointestinal: Normal. absent: Abdominal Pain, Diarrhea, Nausea, Vomiting Genitourinary Female: Normal. absent: Dysuria, Urine Output Changes Musculoskeletal: Back Pain Skin: Normal Neurological: Normal Endocrine: Normal Hemo/Lymphatic: Normal Psychiatric: Normal Physical Exam Vital Signs Reviewed: Yes Vital Signs Temp Pulse Resp BP Pulse Ox 01/09/18 19:47 98.6 F 65 18 161/74 H 100 01/09/18 19:20 98.6 F 65 16 181/74 H 100 Temperature: Afebrile Blood Pressure: Hypertensive Pulse: Regular Respiratory Rate: Normal Appearance: Positive for: Well-Appearing, Non-Toxic, Comfortable Pain Distress: None Mental Status: Positive for: Alert and Oriented X 3 - Systems Exam Head: Present: Atraumatic, Normocephalic Pupils: Present: PERRL Extroacular Muscles: Present: EOMI Conjunctiva: Present: Normal Respiratory/Chest: Present: Clear to Auscultation, Good Air Exchange. No: Respiratory Distress, Accessory Muscle Use Cardiovascular: Present: Regular Rate and Rhythm, Normal S1, S2. No: Murmurs Abdomen: No: Tenderness, Distention, Peritoneal Signs Back: Present: Paraspinal Tenderness (paralumbar tenderness) Upper Extremity: Present: Normal Inspection. No: Cyanosis, Edema Lower Extremity: Present: Normal Inspection. No: Edema Neurological: Present: GCS=15, CN II-XII Intact, Speech Normal Skin: Present: Warm, Dry, Normal Color. No: Rashes Psychiatric: Present: Alert, Oriented x 3, Normal Insight, Normal Concentration Medical Decision Making ED Course and Treatment: 01/09/18 19:47 Impression: 57 year old female presents to the Emergency department requesting medication for chronic back pain. Differential Diagnosis included but are not limited to: Chronic back pain Plan: -- Flexeril -- Lidocaine -- Toradol -- Reassess and disposition Prior Visits: Notes and results from previous visits were reviewed. On 08/31/17 pt was seen in the Emergency department for lower back pain and was discharged after improvement. On 08/01/17 pt was seen in the Emergency department for lower back pain. Patient was discharged home after treatment. Progress Notes: 01/09/18 20:28 Patient denied further medications and eloped from the Emergency department. Patient was witnessed to walk out from the Emergency department. - Medication Orders Current Medication Orders: Discontinued Medications Cyclobenzaprine HCl (Flexeril) 10 mg PO STAT STA Stop: 01/09/18 19:39 Last Admin: 01/09/18 19:45 Dose: Not Given Non-Admin Reason: Patient Refused Ketorolac Tromethamine (Toradol) 30 mg IM STAT STA Stop: 01/09/18 19:38 Last Admin: 01/09/18 19:45 Dose: Not Given Non-Admin Reason: Patient Refused Lidocaine (Lidoderm) 1 ea TD STAT STA Stop: 01/09/18 19:42 Last Admin: 01/09/18 19:45 Dose: Not Given Non-Admin Reason: Patient Refused - Scribe Statement The provider has reviewed the documentation as recorded by the Scribe Roberto Ruiz. All medical record entries made by the Scribe were at my direction and personally dictated by me. I have reviewed the chart and agree that the record accurately reflects my personal performance of the history, physical exam, medical decision making, and the department course for this patient. I have also personally directed, reviewed, and agree with the discharge instructions and disposition. Disposition/Present on Arrival - Present on Arrival Any Indicators Present on Arrival: No History of DVT/PE: No History of Uncontrolled Diabetes: No Urinary Catheter: No History of Decub. Ulcer: No History Surgical Site Infection Following: None - Disposition Have Diagnosis and Disposition been Completed?: Yes Diagnosis: Chronic back pain Disposition: ELOPEMENT - ER ONLY Disposition Time: 08:00 Condition: UNKNOWN Discharge Instructions (ExitCare): Low Back Pain (DC), Chronic Pain Additional Instructions: please follow up with your doctor. return to er with worsening symptoms or concerns. Prescriptions: Cyclobenzaprine [Cyclobenzaprine HCl] 10 mg PO DAILY PRN #10 tab PRN Reason: Muscle Spasm Lidocaine 5% [Lidoderm] 1 ea TD DAILY PRN #4 patch PRN Reason: Pain, Mild (1-3) Naproxen 500 mg PO BID PRN #14 tablet PRN Reason: Pain, Mild (1-3) Referrals: Fran Pearson MD [Staff Provider] - Follow up with primary Forms: [employer] ([place])
[2018-01-09 21:01] VITALS: BP 161/74; RESP 18
== END 2018-01-09 19:47 | disposition left against medical advice (07) ==
LOC: ED 19:14
DX: M54.5 Low back pain (principal); G89.29 Other chronic pain